=== PATIENT | male | born 1950 | race Caucasian/White ===

== ENCOUNTER → 2016-11-21 | Outpatient (CLI) | payer OTHER | LOC: FIMAGING 09:16 | PROVIDERS: ATTEND Family Medicine | DX: R10.31 Right lower quadrant pain (principal); R19.03 Right lower quadrant abdominal swelling, mass and lump; R93.421 Abnormal radiologic findings on diagnostic imaging of right kidney ==

== ENCOUNTER → 2016-11-22 | Outpatient (CLI) | payer OTHER ==
[~2016-11-22] MED LIST: IOPAMIDOL (ISOVUE-300) 100 ML BTL ONE
== END ==
LOC: FIMAGING 08:23
PROVIDERS: ATTEND Family Medicine
DX: J98.11 Atelectasis (principal); R19.03 Right lower quadrant abdominal swelling, mass and lump
CPT/HCPCS: 74178; Q9967